=== PATIENT | female | born 1950 | race Caucasian/White ===

== ENCOUNTER → 2017-01-31 | Outpatient (CLI) | payer MEDICARE | END | disposition home or self-care (01) | LOC: CFH 10:52 | PROVIDERS: ATTEND Obstetrics & Gynecology Gynecology | DX: N64.4 Mastodynia (principal); R92.1 Mammographic calcification found on diagnostic imaging of breast; T85.628D Displacement of other specified internal prosthetic devices, implants and grafts, subsequent encounter; Z80.3 Family history of malignant neoplasm of breast; Z98.82 Breast implant status | CPT/HCPCS: 76642; G0204 ==

== ENCOUNTER → 2017-06-21 | Outpatient (CLI) | payer MEDICARE | LOC: CFH 07:14 | PROVIDERS: ATTEND Internal Medicine Cardiovascular Disease | DX: R07.9 Chest pain, unspecified (principal) | CPT/HCPCS: 78452; 93017; A9502 ==

== ENCOUNTER 2018-02-21 10:44 | Outpatient (CLI) | payer MEDICARE | END 2018-02-21 23:59 | disposition home or self-care (01) | LOC: CFH 10:44 | PROVIDERS: ATTEND Nurse Practitioner Women's Health | DX: Z12.31 Encounter for screening mammogram for malignant neoplasm of breast (principal); Z13.820 Encounter for screening for osteoporosis; N95.0 Postmenopausal bleeding; Z80.3 Family history of malignant neoplasm of breast | CPT/HCPCS: 77080; 77067 ==

== ENCOUNTER → 2019-03-25 | Outpatient (CLI) | payer MEDICARE | END | disposition home or self-care (01) | LOC: CFH 09:32 | PROVIDERS: ATTEND Nurse Practitioner Women's Health | DX: Z12.31 Encounter for screening mammogram for malignant neoplasm of breast (principal); Z80.3 Family history of malignant neoplasm of breast | CPT/HCPCS: 76641; 77067 ==

== ENCOUNTER → 2020-04-22 | Outpatient (CLI) | payer MEDICARE | END | disposition home or self-care (01) | LOC: CFH 10:13 | PROVIDERS: ATTEND Obstetrics & Gynecology Gynecology | DX: Z12.31 Encounter for screening mammogram for malignant neoplasm of breast (principal); Z98.82 Breast implant status | CPT/HCPCS: 77067 ==